=== PATIENT | female | born 1970 | race Caucasian/White ===

== ENCOUNTER 2018-03-19 17:54 | Emergency (ER) | payer BC ==
[2018-03-19 19:29] LABS: #Basophils 0.1 thou/uL (0.0-0.2); #Eosinphils 0.2 thou/uL (0.0-0.7); #Lymphocytes 2.7 thou/uL (1.20-3.40); #Monocytes 0.7 thou/uL (0.11-0.59); #Neutrophils 7.2 thou/uL (1.40-6.50); %Basophils 0.6 % (0.0-1.0); %Eosinophils 1.9 % (0.0-10.0); %Lymphocytes 24.7 % (21.0-51.0); %Monocytes 6.1 % (0.0-10.0); %Neutrophils 66.7 % (42.0-75.0); Hemoglobin 12.3 g/dL (12.0-16.0); Mean Corpuscular HGB CONC 32.8 g/dL (32.0-36.0); Mean Corpuscular Hemoglobin 30.6 pg (27.0-31.0); Mean Corpuscular Volume 93.5 fL (78.0-98.0); Mean Platelet Volume 8.6 fL (7.4-10.4); Platelet Count 252 thou/uL (130-400); Red Blood Cell (RBC) Count 4.01 mill/uL (4.20-5.40); White Blood Cell (WBC) Count 10.7 thou/uL (4.8-10.8)
--- NOTE | 2018-03-19 19:53 | RAD ---
RIGHT MIDDLE FINGER: 03/19/18 HISTORY: Finger pain and redness. There is no signs of fracture. No bony erosive change to suggest osteomyelitis. IMPRESSION: Unremarkable finger. POS: [facility]
--- NOTE | 2018-03-20 07:55 | ER ---
DATE OF SERVICE: CHIEF COMPLAINT: Right long finger edema, possible infection. HISTORY OF PRESENT ILLNESS: The patient is 6 feet 1 inch [employer] graduate, who works for the [employer], complained that she has had 3 days of progressive swelling and 1-day of progressive pulp space edema and tightness at the right long finger distal phalanx. No evidence of laceration or penetration, outside or inside work, no prior history of problems. The only prior medical problems were subluxation of patella and bilateral tibia fractures as a teenager. She reports that she is concerned about the edema over the last 2 days. She has twice used needle at the base of the eponychial fold of the nail ulnar greater than radial aspect and drained, which she describes as purulence. PHYSICAL EXAMINATION: The patient is awake, alert, and oriented x3. We noticed that the right upper extremity that she had pulp space edema almost 50% greater than the opposite contralateral side. The pulp space is not tense, but is larger and softer than the opposite side. There is no stretch pain. Kanavel signs are absent. No fusiform swelling. There is erythema on the dorsal ulnar corner of the right long finger consistent with erythema and possible fluctuance. The nail on the radial side also has some evidence of early drainage formation. No lymphangitic streaking, pain along the tendon sheath, pain with passive stretch or lack of motion. ASSESSMENT AND RECOMMENDATIONS: Felon secondary to paronychia infection with possible ingrown median nail, ulnar nail: I explained to the patient that we need to have it drained, but since she ate within an hour before coming to emergency room, it would be best scheduled for the next day. So she will go home without antibiotics. She reports she uses frankincense, which helps to decrease her pain and will use that tonight and will not eat anything after 8:00 a.m. and will come into the hospital approximately 4 o'clock for her surgical procedure around 5. Job ID: [id number]
== END 2018-03-19 21:18 | disposition home or self-care (01) ==
LOC: ERS 17:54
DX: L03.011 Cellulitis of right finger (principal)
CPT/HCPCS: 36415; 85025; 85652; 86140

== ENCOUNTER 2018-03-20 16:38 | Day surgery (SDC) | payer BC ==
[~2018-03-20 16:38] MED LIST: Dexamethasone 20 MG/5 ML VIAL ONE; Ketorolac Tromethamine 30 MG/ML VIAL ONE; Lidocaine 1% PF 5 ML VIAL ONE; Metoclopramide HCl 10 MG/2 ML VIAL ONE; Ondansetron PF 4 MG/2 ML Vial ONE; PROPOFOL 200 MG/20 ML VIAL ONE; diphenhydrAMINE 50 MG/ML VIAL ONE
[2018-03-20] MEDS ORDERED: Sodium Chloride 0.9% 10 ML ONE (17:00)
[2018-03-20] MEDS ORDERED: Thrombin 5000 UNITS/5 ML VIAL ONE (17:00)
[2018-03-20] MEDS ORDERED: Bupivacaine PF 0.5% 30 ML VIAL ONE (17:00)
[2018-03-20] MEDS ORDERED: Bacitracin Zinc Ointment 30 gm TUBE ONE (17:00)
[2018-03-20] MEDS ORDERED: Sodium Chloride 0.9% 0 ML ONE (17:01)
[2018-03-20] MEDS ORDERED: Fentanyl 100 MCG/2 ML VIAL ONE ×2 (17:08→17:35)
[2018-03-20] MEDS ORDERED: Midazolam HCl 2 mg/2 ml Vial ONE (17:35)
[2018-03-20] MEDS ORDERED: Sodium Chloride 0.9% 20 ML ONE (17:36)
[2018-03-20] MEDS ORDERED: Ketorolac Tromethamine 30 MG/ML VIAL ONE (19:10)
--- NOTE | 2018-03-20 23:07 | OP ---
DATE OF PROCEDURE: 03/20/2018 PREOPERATIVE DIAGNOSIS: Right middle finger ingrown nail with abscess in the pulp space (felon and paronychia). FINDINGS: 1. Infection of the pulp space, felon. 2. Infection in the subungual region, paronychia. 3. Infected nail bed where infection began and then spread to the other 2 areas listed above. PROCEDURE PERFORMED: 1. Incision and drainage of complex abscess, felon and paronychia. 2. Removal of nail with debridement of ingrown finger nail abscess. TOURNIQUET TIME: 6 minutes. BLOOD LOSS: Less than 3 mL. INDICATIONS: Three days of progressive subungual pain, now presents with erythema in the pulp space, increased itch and radiated up 0.5 mm proximal to the nail bed base. ANESTHESIA: 12 mL of 0.5% Marcaine metacarpophalangeal block along with propofol from Anesthesia, NUTRITIONAL SERVICES DIRECTOR, Karyn Coil. DESCRIPTION OF PROCEDURE: After successful anesthesia as listed above, we waited 10 minutes for the block to take effect. Exsanguinated the limb, made an incision 6 mm palmar to the edge of the skin along the proximal 2/3rd of the nail bed because it was fluctuant. Followed erythema to 0.5 mm proximal and on the radial same side of the finger. We then noticed infection in the pulp space and infection of the nail, so we removed the 1/3rd of the nail in the side. Immediately, gross purulence escaped. Tracked down to debride between the nail bed and the bone and the pulp space. We drained more from the pulp space. We then found nodulation up the extensor tendon on flexor tendon, so we irrigated with 500 mL normal saline on the bulb syringe pressure with antibiotics inside. We deflated the tourniquet. We took cultures x2 different places from this site, especially where there was gross pus. The tourniquet was deflated. There was excellent color and capillary refill. We put a loosely applied finger tube gauze. The patient left the operating room without evidence of anesthetic or operative complication. Job ID: [id number]
== END 2018-03-20 20:28 | disposition home or self-care (01) ==
LOC: SDC 16:38
PROVIDERS: ATTEND Orthopaedic Surgery Hand Surgery
PROC: 0H9FXZZ Drainage of Right Hand Skin, External Approach (ICD-10-PCS; principal; 2018-03-20)
PROC: 0HBQXZZ Excision of Finger Nail, External Approach (ICD-10-PCS; principal; 2018-03-20)
DX: L60.0 Ingrowing nail (principal); L03.011 Cellulitis of right finger; Z91.09 Other allergy status, other than to drugs and biological substances; Z79.2 Long term (current) use of antibiotics; Z79.52 Long term (current) use of systemic steroids
CPT/HCPCS: 87070; 87205; J1100; J1200; J1885; J2001; J2250; J2405; J2704; J2765; J3010; J3370; J3490; S0020

== ENCOUNTER 2018-05-28 13:58 | Outpatient (CLI) | payer BC ==
--- NOTE | 2018-05-28 15:21 | MMO ---
Bilateral MAMMO Bilat Diag [facility]. CLINICAL HISTORY: Patient is 47 years old and is seen for diagnostic exam and palpable abnormality in the right breast. The patient has the following family history of breast cancer: aunt. The patient has no personal history of cancer. VIEWS: The views performed were: bilateral craniocaudal with tomosynthesis; bilateral mediolateral oblique with tomosynthesis; bilateral mediolateral; and right exaggerated craniocaudal with tomosynthesis. FILMS COMPARED: The present examination has been compared to prior imaging studies performed at [facility] on 05/28/2018, and at [facility] [place] on 07/12/2016, 08/04/2016, 08/02/2017 and 02/11/2018. MAMMOGRAM FINDINGS: The breasts are heterogeneously dense, which could obscure a lesion on mammography. Finding 1: There are multiple round masses of varying size with circumscribed margins seen in both breasts. Finding 2: There are calcifications with grouped or clustered distribution seen in the upper-outer region of the right breast. IMPRESSION: FINDING 1: MASSES IN BOTH BREASTS ARE BENIGN. FINDING 2: CALCIFICATIONS IN THE RIGHT BREAST ARE PROBABLY BENIGN. FOLLOW-UP IN 6 MONTHS IS RECOMMENDED. THE RESULTS OF THIS EXAM WERE SENT TO THE PATIENT. ACR BI-RADS Category 3 - Probably benign finding - short interval follow-up suggested. [facility] will notify the patient of the need for additional imaging services. MAMMOGRAPHY NOTE: 1. A negative mammogram report should not delay a biopsy if a dominant of clinically suspicious mass is present. 2. Approximately 10% to 15% of breast cancers are not detected by mammography. 3. Adenosis and dense breasts may obscure an underlying neoplasm.
--- NOTE | 2018-05-28 15:49 | ULT ---
RIGHT BREAST ULTRASOUND: 05/28/18 COMPARISON: Mammogram 05/28/18, 07/25/17. HISTORY: Palpable mass in the upper aspect of the right breast at approximately the 12 o'clock position. Patie nt had calcifications seen at [facility] for which a biopsy was recommended. The patient r efused a biopsy. TECHNIQUE: Multiplanar perry scale and color Doppler images were obtained in a targeted ultrasound of the right b reast in the upper aspect of the right breast. FINDINGS: Numerous cysts are seen scattered throughout the right breast. The largest is seen at the 12 o'clock position which is the area of palpable abnormality. This measures 2.7 cm in greatest dimension. No s olid mass or suspicious shadowing is seen in the visualized portions of the right breast. IMPRESSION: No suspicious ultrasonographic abnormality is seen. However, the calcifications for which a biopsy wa s recommended should be followed to ensure stability and a six month follow-up mammogram is recommend ed. BIRADS 3: Probably Benign Finding Initial Short-Interval Follow-Up Suggested Initial short-term follow up (usually 6-month) examination POS: [facility]
== END 2018-05-28 13:59 | disposition home or self-care (01) ==
LOC: BICMAMMO 13:58
PROVIDERS: ATTEND Family Medicine
DX: R92.8 Other abnormal and inconclusive findings on diagnostic imaging of breast (principal); N63.10 Unspecified lump in the right breast, unspecified quadrant; N63.20 Unspecified lump in the left breast, unspecified quadrant; R92.1 Mammographic calcification found on diagnostic imaging of breast; Z80.3 Family history of malignant neoplasm of breast
CPT/HCPCS: 77066; G0279

== ENCOUNTER 2018-08-23 14:13 | Outpatient (CLI) | payer BC ==
--- NOTE | 2018-08-23 15:59 | ULT ---
THYROID ULTRASOUND: 08/23/18 INDICATION: Thyromegaly. FINDINGS: The thyroid isthmus measures 0.20 cm. The right thyroid lobe measures 5.9 x 2.4 x 1.9 cm. The left lobe measures 4.9 x 2.1 x 1.9 cm. The thyroid lobes are diffusely heterogeneous and slightly hypervascular. There is a 2.8 x 1.0 x 1.5 cm solid heterogeneous and slightly hypoechoic nodule involving the mid to lower pole of the right thyroid gland. There is a 6 mm hyperechoic solid nodule within the mid to lo wer pole of the right thyroid gland. There is a 9 mm predominantly isoechoic nodule within the mid left thyroid lobe. There is some sports internship al hyperechogenicity within this lesion. IMPRESSION: 1. Heterogeneous and slightly hypervascular multinodular goiter. Component of a thyroiditis duyen ot be entirely excluded. There are scattered predominantly hyperechoic nodules seen throughout both g lands. Recommend correlation for any symptoms and signs of Trevor's thyroiditis. The most dominant lesion is seen within the posterior aspect of the mid to lower pole of the right thyroid gland which is somewhat heterogeneous in appearance and measures 2.8 x 1.0 x 1.5 cm. This is consistent with a T I-RADS 3 lesion. With the length of the lesion being 2.8 cm, FNA could be a consideration. However, i n light of the diffuse heterogeneity of the thyroid gland and number of nodules seen within both thyr oid lobes, a follow-up thyroid ultrasound is recommended in one year to document stability. 2. Additional TI-RADS 3 lesion seen within the mid to lower pole of the right thyroid gland and within the left mid aspect of the left thyroid gland. POS: [facility]
== END 2018-08-23 14:14 | disposition home or self-care (01) ==
LOC: SCSULT 14:13
PROVIDERS: ATTEND Family Medicine
DX: E04.9 Nontoxic goiter, unspecified (principal); E04.2 Nontoxic multinodular goiter
CPT/HCPCS: 76536